=== PATIENT | female | born 1965 | race Caucasian/White ===

== ENCOUNTER 2017-09-02 17:35 | Emergency (ER) | payer OTHER ==
[~2017-09-02] VITALS: Ht 160 cm; Wt 124.7 kg
[2017-09-02 17:45] VITALS: BP 128/71
[2017-09-02] MEDS ORDERED: CLINDAMYCIN HC300 MG PO (17:57)
[2017-09-02] MEDS ORDERED: DELTASONE20 M1 PO (17:57)
== END 2017-09-02 18:18 | disposition home or self-care (01) ==
LOC: ED 17:35
DX: J01.10 Acute frontal sinusitis, unspecified (principal); H66.91 Otitis media, unspecified, right ear; Z88.0 Allergy status to penicillin; Z88.1 Allergy status to other antibiotic agents; Z88.8 Allergy status to other drugs, medicaments and biological substances; Z88.6 Allergy status to analgesic agent

== ENCOUNTER → 2019-05-05 | Outpatient (CLI) | payer OTHER ==
[~2019-05-05] MED LIST: CLINDAMYCIN HC300 MG PO; DELTASONE20 M1 PO
[2019-05-05 12:29] LABS: BASO # 0.1 10*3/uL (0.0-0.1); BASO % 0.5 % (0.0-1.0); EOS # 0.2 10*3/uL (0.0-0.4); EOS % 2.4 % (1.0-4.0); HEMATOCRIT 38.7 % (37.0-47.0); HEMOGLOBIN 12.5 g/dl (12.0-16.0); LYMPH # 1.6 10*3/uL (1.3-4.4); LYMPH % 15.8 % (27.0-41.0); MEAN CORPUSCULAR HGB 28.1 pg (27.0-31.0); MEAN CORPUSCULAR HGB CONC 32.3 g/dl (33.0-37.0); MEAN PLATELET VOLUME 10.3 fl (9.6-12.3); MONO # 0.6 10*3/uL (0.1-1.0); MONO % 5.6 % (3.0-9.0); NEUT # 7.4 10*3/uL (2.3-7.9); NEUT % 75.4 % (47.0-73.0); PLATELET COUNT AUTOMATED 255 10*3/uL (130-400); RED BLOOD COUNT 4.45 10*6/uL (4.10-5.10); RED CELL DISTRI WIDTH 15.3 % (0-14.5); WHITE BLOOD COUNT 9.8 10*3/uL (4.8-10.8)
[2019-05-05 12:56] LABS: ALBUMIN 3.6 gm/dl (3.1-4.5); ALKALINE PHOSPHATASE 486 U/L (45-117); BUN 18 mg/dl (7-24); CHLORIDE 105 mmol/L (98-107); CHOLESTEROL 175 mg/dL (<200); CREATININE 1.09 mg/dL (0.55-1.02); HDL CHOLESTEROL 58 mg/dl (40-60); LDL CHOLESTEROL 78 mg/dL (9-159); POTASSIUM 4.5 mmol/L (3.5-5.1); SGOT/AST 27 IU/L (3-35); SGPT/ALT 40 U/L (12-78); SODIUM 139 mmol/L (136-145); TOTAL PROTEIN 7.6 gm/dL (6.4-8.2); TRIGLYCERIDES 193 mg/dl (<150); VLDL CHOLESTEROL 39 mg/dL (6-40)
== END | disposition home or self-care (01) ==
LOC: LAB 11:15
PROVIDERS: Internal Medicine
DX: E55.9 Vitamin D deficiency, unspecified (principal); E11.9 Type 2 diabetes mellitus without complications; E78.5 Hyperlipidemia, unspecified; I10 Essential (primary) hypertension; I25.9 Chronic ischemic heart disease, unspecified

== ENCOUNTER 2021-07-06 23:29 | Emergency (ER) | payer MEDICARE, MEDICAID ==
[~2021-07-06] VITALS: Ht 162.5 cm; Wt 113.4 kg
[2021-07-06 23:40] VITALS: BP 160/54
[2021-07-07 00:23] LABS: BASO % 0.3 % (0.0-1.0); EOS # 0.2 10*3/uL (0.0-0.4); HEMATOCRIT 33.5 % (37.0-47.0); LYMPH # 1.9 10*3/uL (1.3-4.4); LYMPH % 20.8 % (27.0-41.0); MEAN CELL VOLUME 80.9 fl (81.0-99.0); MEAN CORPUSCULAR HGB 25.8 pg (27.0-31.0); MEAN CORPUSCULAR HGB CONC 31.9 g/dl (33.0-37.0); MEAN PLATELET VOLUME 9.7 fl (9.6-12.3); MONO # 0.6 10*3/uL (0.1-1.0); MONO % 6.2 % (3.0-9.0); NEUT # 6.4 10*3/uL (2.3-7.9); NEUT % 70.5 % (47.0-73.0); PLATELET COUNT AUTOMATED 240 10*3/uL (130-400); RED BLOOD COUNT 4.14 10*6/uL (4.10-5.10); RED CELL DISTRI WIDTH 15.7 % (0-14.5); WHITE BLOOD COUNT 9.1 10*3/uL (4.8-10.8)
[2021-07-07 00:47] LABS: CREATININE 1.15 mg/dL (0.55-1.02); POTASSIUM 3.9 mmol/L (3.5-5.1); TOTAL PROTEIN 6.9 gm/dL (6.4-8.2)
[2021-07-07] MEDS ORDERED: ULTRAM50 MG PO (01:49)
== END 2021-07-07 01:51 | disposition home or self-care (01) ==
LOC: ED 23:29
PROVIDERS: Emergency Medicine
DX: S22.32XA Fracture of one rib, left side, initial encounter for closed fracture (principal); Z88.0 Allergy status to penicillin; Z88.1 Allergy status to other antibiotic agents; Z88.8 Allergy status to other drugs, medicaments and biological substances; W20.8XXA Other cause of strike by thrown, projected or falling object, initial encounter; Y93.89 Activity, other specified; Y92.89 Other specified places as the place of occurrence of the external cause; Y99.8 Other external cause status

== ENCOUNTER 2022-03-14 12:28 | Emergency (ER) | payer OTHER, MEDICAID ==
[~2022-03-14] VITALS: Ht 162.5 cm; Wt 118.8 kg
[~2022-03-14 12:28] MED LIST changes: +ULTRAM50 MG PO
[2022-03-14 16:52] LABS: BASO # 0.1 10*3/uL (0.0-0.1); BASO % 0.5 % (0.0-1.0); EOS # 0.2 10*3/uL (0.0-0.4); EOS % 1.2 % (1.0-4.0); LYMPH % 15.3 % (27.0-41.0); MEAN CELL VOLUME 78.1 fl (81.0-99.0); MEAN CORPUSCULAR HGB 24.6 pg (27.0-31.0); MEAN CORPUSCULAR HGB CONC 31.5 g/dl (33.0-37.0); MEAN PLATELET VOLUME 9.6 fl (9.6-12.3); MONO # 0.8 10*3/uL (0.1-1.0); MONO % 5.7 % (3.0-9.0); NEUT # 10.1 10*3/uL (2.3-7.9); PLATELET COUNT AUTOMATED 331 10*3/uL (130-400); RED BLOOD COUNT 5.12 10*6/uL (4.10-5.10); RED CELL DISTRI WIDTH 16.7 % (0-14.5); WHITE BLOOD COUNT 13.1 10*3/uL (4.8-10.8)
[2022-03-14 17:08] LABS: CREATININE 1.47 mg/dL (0.55-1.02); POTASSIUM 4.1 mmol/L (3.4-5.1); TOTAL PROTEIN 8.3 gm/dL (6.0-8.0)
[2022-03-14 17:22] LABS: BILIRUBIN 1+ (Negative); BLOOD Negative (Negative); CLARITY Turbid (Clear); COLOR Dark Yellow (Yellow); GLUCOSE Negative (Negative); KETONE Trace (Negative); LEUKO ESTERASE 3+ (Negative); NITRITE Positive (Negative); PH 5.5 (4.5-8.0)
[2022-03-14 17:52] LABS: BACTERIA 3+; WBC TNTC wbc/hpf (0-5)
[2022-03-14 17:53] LABS: HYALINE CAST 0-2
[2022-03-14 19:35] VITALS: BP 126/74
[2022-03-14] MEDS ORDERED: ONDANSETRON4 MG SL (20:42)
[2022-03-14] MEDS ORDERED: MACROBID100 M1 PO (20:42)
== END 2022-03-14 21:26 | disposition home or self-care (01) ==
LOC: ED 12:28
PROVIDERS: Physician Assistant
DX: N39.0 Urinary tract infection, site not specified (principal); J06.9 Acute upper respiratory infection, unspecified; Z88.0 Allergy status to penicillin; Z88.2 Allergy status to sulfonamides; Z79.4 Long term (current) use of insulin; Z79.1 Long term (current) use of non-steroidal anti-inflammatories (NSAID); Z88.8 Allergy status to other drugs, medicaments and biological substances; Z20.822 Contact with and (suspected) exposure to COVID-19

== ENCOUNTER 2022-05-21 18:31 | Emergency (ER) | payer OTHER, MEDICAID ==
[~2022-05-21] VITALS: Ht 160 cm; Wt 118.8 kg
[~2022-05-21 18:31] MED LIST changes: +MACROBID100 M1 PO; +ONDANSETRON4 MG SL
[2022-05-21 18:39] VITALS: BP 154/72
[2022-05-21] MEDS ORDERED: CLINDAMYCIN HC300 MG PO (19:10)
[2022-05-21] MEDS ORDERED: TRAMADOL HCL50 MG PO (19:18)
== END 2022-05-21 19:59 | disposition home or self-care (01) ==
LOC: ED 18:31
DX: K08.89 Other specified disorders of teeth and supporting structures (principal); Z88.0 Allergy status to penicillin; Z88.8 Allergy status to other drugs, medicaments and biological substances; Z88.2 Allergy status to sulfonamides; Z88.1 Allergy status to other antibiotic agents

== ENCOUNTER 2025-02-21 16:37 | Emergency (ER) | payer OTHER, MEDICAID ==
[~2025-02-21] VITALS: Ht 162.6 cm; Wt 108.9 kg
[~2025-02-21 16:37] MED LIST changes: +AVPAK AZITHROM250 M1 PO; +CLOPIDOGREL75 MG PO; +DOXYCYCLINE HY100 M3 PO; +FUROSEMIDE40 MG PO; +LANTUS SOL100 UNIT/1 SC; +MELOXICAM15 MG PO; +METOPROLOL SUCC25 M2 PO; +PANTOPRAZOLE SO40 MG PO; +PAROXETINE HCL40 MG PO; +POTASSIUM CHLO10 MEQ PO; +SIMVASTATIN40 MG PO; +TRAMADOL HCL50 MG PO
[2025-02-21 17:22] VITALS: BP 151/57
[2025-02-21] MEDS ORDERED: AZITHROMYCIN 250 MG TAB PO ONE (18:55)
[2025-02-21] MEDS ORDERED: IBUPROFEN 800 MG TAB PO ONE (18:55)
[2025-02-21] MEDS ORDERED: ZITHROMAX250 MG PO (19:09)
[2025-02-21] MEDS ORDERED: IBU800 M1 PO (19:09)
[2025-02-21] MEDS ORDERED: CIPROFLOX-DEXA7.5 ML OT (19:09)
== END 2025-02-21 19:15 | disposition home or self-care (01) ==
LOC: ED 16:37
DX: H66.91 Otitis media, unspecified, right ear (principal); J06.9 Acute upper respiratory infection, unspecified; H60.91 Unspecified otitis externa, right ear; Z88.6 Allergy status to analgesic agent; Z88.8 Allergy status to other drugs, medicaments and biological substances; Z88.0 Allergy status to penicillin; Z88.2 Allergy status to sulfonamides; Z79.899 Other long term (current) drug therapy; Z79.4 Long term (current) use of insulin; Z90.49 Acquired absence of other specified parts of digestive tract; Z95.5 Presence of coronary angioplasty implant and graft